=== PATIENT | female | born 1930 | race Two or more races ===

== ENCOUNTER 2016-11-10 16:28 | Emergency (ER) | payer MEDICARE, MEDICAID ==
[~2016-11-10] VITALS: Ht 154.9 cm; Wt 65.8 kg
[~2016-11-10 16:28] MED LIST: NITROFURANTOIN100 M2 ORAL; NKM; TRAMADOL HCL50 MG ORAL; UNOBMED
[2016-11-10] MEDS ORDERED: Bacitracin Oint UD TOPIC ONE (17:30)
[2016-11-10] MEDS ORDERED: Acetaminophen 500mg (ES) tab ORAL ONE (18:00)
[2016-11-10 18:01] LABS: APPEARANCE,URINE CLEAR; KETONES,URINE NEGATIVE (NEGATIVE); LEUKOCYTE ESTERASE ,URINE NEGATIVE (NEGATIVE); NITRITE,URINE NEGATIVE (NEGATIVE); PH,URINE 5 (4.5-8.0); PROTEIN,URINE 1+ (NEGATIVE); UROBILINOGEN,URINE 1 MG/DL (0.0-1.0)
[2016-11-10 18:07] LABS: BASOPHILS % (AUTO) 1.6 % (0.0-2.0); EOSINOPHILS % (AUTO) 3.4 % (0.0-3.0); LYMPHOCYTES % (AUTO) 16.2 % (20.0-45.0); MEAN CORPUSCULAR HGB CONC 32.7 G/DL (32.0-36.0); MEAN CORPUSCULAR VOLUME 98 FL (80-99); MEAN PLATELET VOLUME 9.4 FL (6.5-10.1); MONOCYTES % (AUTO) 5.9 % (1.0-10.0); NEUTROPHILS % (AUTO) 72.9 % (45.0-75.0); PLATELET COUNT 151 K/UL (150-450); RED CELL DISTRIBUTION WIDTH 12.4 % (11.6-14.8); WHITE BLOOD COUNT 7.4 K/UL (4.8-10.8)
[2016-11-10 18:18] LABS: TROPONIN I < 0.30 ng/mL (<=0.30)
[2016-11-10 18:20] LABS: BACTERIA,URINE FEW /HPF; RBC,URINE 0-2 /HPF (0 - 2); SQUAMOUS EPITHELIAL CELL,UR MODERATE /LPF (NONE/OCC); WBC,URINE 0-2 /HPF (0 - 2)
[2016-11-10 18:21] LABS: ALANINE AMINOTRANSFERASE 12 U/L (3-33); ALBUMIN/GLOBULIN RATIO 1.5 (1.0-2.7); ANION GAP 17 (5-15); ASPARTATE AMINO TRANSFERASE 24 U/L (5-40); CALCIUM 9.1 mg/dL (8.6-10.2); CARBON DIOXIDE 23 mEQ/L (20-30); CHLORIDE 96 mEQ/L (98-107); CREATININE 0.7 mg/dL (0.5-0.9); HEMOLYSIS 11; POTASSIUM 4.1 mEQ/L (3.4-4.9); SODIUM 136 mEQ/L (135-145); TOTAL PROTEIN 7.5 g/dL (6.6-8.7)
--- NOTE | 2016-11-10 19:40 | Emergency Room Report ---
History of Present Illness General Chief Complaint: Generalized Weakness Source: Patient Present Illness HPI 85-year-old female presents to emergency Department complaining of pain in the lower back in addition to left elbow pain and 2 days. Patient states she mechanical trip and fall on the sidewalk and has had pain since. Patient denies hitting her head, patient denies loss of consciousness. Patient denies taking blood thinning medications. Patient states that her primary care provider suggest that she be evaluated at the emergency department. Denies numbness tingling or loss of sensation or gross motor movements of the extremities, incontinence of bowel or bladder. Denies CP, Palpitations, LOC, AMS , dizziness, Changes in Vision, Sensation, paresthesias, or a sudden severe headache. 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 Past Medical History: see triage record Past Surgical History: none Pertinent Family History: none Now: No Immunizations: UTD Reviewed Nursing Documentation: PMH: Agreed, PSxH: Agreed Nursing Documentation-PMH Past Medical History: No Stated History Review of Systems All Other Systems: negative except mentioned in HPI Physical Exam Vital Signs Date Time Temp Pulse Resp B/P Pulse Ox O2 Delivery O2 Flow Rate FiO2 11/10/16 16:34 97.9 96 15 151/81 98 Room Air Sp02 EP Interpretation: reviewed, normal General Appearance: no apparent distress, alert, GCS 15, non-toxic Head: normocephalic, atraumatic Eyes: bilateral eye PERRL, bilateral eye normal inspection ENT: hearing grossly normal, normal pharynx, no angioedema, normal voice Neck: full range of motion, no meningismus, no bony tend, supple/symm/no masses Respiratory: chest non-tender, lungs clear, normal breath sounds, speaking full sentences Cardiovascular #1: regular rate, rhythm, no edema, normal capillary refill Cardiovascular #2: 2+ radial (R), 2+ radial (L) Gastrointestinal: normal bowel sounds, non tender, soft, no guarding, no rebound Rectal: deferred Musculoskeletal: back normal, gait/station normal, normal range of motion - FROM with pain, tender - Lumbar midline and paraspinal TTP, no bruising or obvious deformity noted. Left elbow bruises, and swelling noted. Neurologic: alert, oriented x3, responsive, motor strength/tone normal, sensory intact, cerebellar normal, normal gait, speech normal Psychiatric: judgement/insight normal, memory normal, mood/affect normal Skin: no rash, warm/dry, well hydrated, other - moderate bruise to the left elbow, there is swelling to the forearm , abrasions - abrasion to the lateral left ankle Lymphatic: no adenopathy Medical Decision Making PA Attestation Dr. Jasmine is my supervising Physician whom patient management has been discussed with. Diagnostic Impression: Primary Impression: Abrasion Additional Impressions: Elbow contusion Qualified Codes: S50.02XA - Contusion of left elbow, initial encounter Back pain Qualified Codes: M54.5 - Low back pain Fall Qualified Codes: W19.XXXA - Unspecified fall, initial encounter Elbow fracture, left Qualified Codes: S42.402A - Unspecified fracture of lower end of left humerus , initial encounter for closed fracture ER Course 85-year-old female presents to emergency Department complaining of pain in the lower back in addition to left elbow pain and 2 days. Patient states she mechanical trip and fall on the sidewalk and has had pain since. Patient denies hitting her head, patient denies loss of consciousness. Patient denies taking blood thinning medications. Patient states that her primary care provider suggest that she be evaluated at the emergency department. Ddx considered but are not limited to Fracture, dislocation, contusion, Sprain/ Strain/Spasm, Epidural abscess, Neoplastic mets. Vital signs: are WNL, pt. is afebrile H&PE are most consistent with Elbow contusion, right ankle abrasion, and [facility] will r/o fx with imaging. 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 Jasmine. - X-ray Left Elbow - evidence of posterior fat pad suggesting Fx- per Preliminary read in the ED by Dr. Jasmine. -CT L-Spine no Contrast: no evidence of fractures per preliminary radiology report. ED INTERVENTIONS: - Tylenol PO -Bacitracin is applied to the right ankle abrasion. - Long arm Posterior Splint applied to the left arm by histologist technologist. Pt. remains neurovascularly intact. -- Left arm Sling applied by histologist technologist. Pt. remains neurovascularly intact. DISCHARGE: At this time pt. is stable for d/c to home. Will provide printed patient care instructions, and any necessary prescriptions. Care plan and follow up instructions have been discussed with the patient prior to discharge. Labs Test 11/10/16 17:45 White Blood Count 7.4 K/UL (4.8-10.8) Red Blood Count 3.70 M/UL (4.20-5.40) Hemoglobin 11.8 G/DL (12.0-16.0) Hematocrit 36.2 % (37.0-47.0) Mean Corpuscular Volume 98 FL (80-99) Mean Corpuscular Hemoglobin 32.0 PG (27.0-31.0) Mean Corpuscular Hemoglobin Concent 32.7 G/DL (32.0-36.0) Red Cell Distribution Width 12.4 % (11.6-14.8) Platelet Count 151 K/UL (150-450) Mean Platelet Volume 9.4 FL (6.5-10.1) Neutrophils (%) (Auto) 72.9 % (45.0-75.0) Lymphocytes (%) (Auto) 16.2 % (20.0-45.0) Monocytes (%) (Auto) 5.9 % (1.0-10.0) Eosinophils (%) (Auto) 3.4 % (0.0-3.0) Basophils (%) (Auto) 1.6 % (0.0-2.0) Urine Color Yellow Urine Appearance Clear Urine pH 5 (4.5-8.0) Urine Specific [place] 1.015 (1.005-1.035) Urine Protein 1+ (NEGATIVE) Urine Glucose (UA) Negative (NEGATIVE) Urine Ketones Negative (NEGATIVE) Urine Occult Blood 4+ (NEGATIVE) Urine Nitrite Negative (NEGATIVE) Urine Bilirubin Negative (NEGATIVE) Urine Urobilinogen 1 MG/DL (0.0-1.0) Urine Leukocyte Esterase Negative (NEGATIVE) Urine RBC 0-2 /HPF (0 - 2) Urine WBC 0-2 /HPF (0 - 2) Urine Squamous Epithelial Cells Moderate /LPF (NONE/OCC) Urine Bacteria Few /HPF (NONE) Sodium Level 136 mEQ/L (135-145) Potassium Level 4.1 mEQ/L (3.4-4.9) Chloride Level 96 mEQ/L (98-107) Carbon Dioxide Level 23 mEQ/L (20-30) Anion Gap 17 (5-15) Blood Urea Nitrogen 19 mg/dL (7-23) Creatinine 0.7 mg/dL (0.5-0.9) Estimat Glomerular Filtration Rate mL/min (>60) Glucose Level 99 mg/dL (74-106) Lactic Acid Level 0.80 mmol/L (0.66-2.22) Calcium Level 9.1 mg/dL (8.6-10.2) Total Bilirubin 0.6 mg/dL (0.0-1.2) Aspartate Amino Transf (AST/SGOT) 24 U/L (5-40) Alanine Aminotransferase (ALT/SGPT) 12 U/L (3-33) Alkaline Phosphatase 71 U/L (35-104) Total Creatine Kinase 168 U/L (26-140) Creatine Kinase MB 3.0 ng/mL (< 3.8) Creatine Kinase MB Relative Index 1.7 Troponin I < 0.30 ng/mL (<=0.30) Total Protein 7.5 g/dL (6.6-8.7) Albumin 4.5 g/dL (3.5-5.2) Globulin 3.0 g/dL Albumin/Globulin Ratio 1.5 (1.0-2.7) EKG Diagnostic Results EP Interpretation: interpreted by Dr. 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 Jasmine Last Vital Signs Date Time Temp Pulse Resp B/P Pulse Ox O2 Delivery O2 Flow Rate FiO2 11/10/16 16:34 97.9 96 15 151/81 98 Room Air Disposition: HOME, SELF-CARE Condition: Stable Scripts Acetaminophen* (TYLENOL EXTRA STRENGTH*) 500 Mg Tablet 500 MG ORAL Q6H, #30 TAB 0 Refills Prov: Yamile Rivas 11/10/16 Referrals: NOT CHOSEN IPA/MD,REFERRING (PCP) Patient Instructions: Contusion, [id number], Elbow Fracture, Simple Additional Instructions: Take medications as directed. Follow up with PCP in 3-5 days Return sooner to ED if new symptoms occur, or current symptoms become worse. - Please note that this Emergency Department Report was dictated using [employer] sign language interpreter technology software, occasionally this can lead to erroneous entry secondary to interpretation by the dictation equipment. Yamile Rivas Nov 10, 2016 19:40
[2016-11-10] MEDS ORDERED: TYLENOL EXTRA500 MG ORAL (20:28)
[2016-11-10 20:37] VITALS: BP_SYST 145; BP_SYST 151; BP_DIAS 68; BP_DIAS 81
--- NOTE | 2016-11-11 10:07 | Diagnostic Imaging Report ---
Indications: Left elbow pain Technique: Views left elbow. Findings: Comparison: None No fracture, dislocation, joint space widening or effusion, lytic destruction, periosteal reaction , surrounding soft tissue swelling/foreign body/gas, or other acute changes are identified. IMPRESSION: No evidence of acute abnormalities.
--- NOTE | 2016-11-13 08:42 | Diagnostic Imaging Report ---
Indications: Fall, injury, low back pain Technique: Continuous helical CT imaging of the lumbar spine was performed with automatic exposure control on a Siemens sensation [address] scanner. Axial, coronal, and sagittal images were reconstructed at 3 mm slice thicknesses. CTDI volume(s): 11 mGy Total DLP: 352 mGy-cm Findings: Comparison: None Vertebral and intact. No fracture, facet subluxation or dislocation, lytic destruction, surrounding soft tissue swelling/mass, or other acute change identified. Small osteophytes margins of multiple disc spaces without narrowing. Lower lumbar facet joints mildly hypertrophied. Scattered arterial mural calcifications. Vascular patency indeterminate. Circumscribed low and high attenuation foci in bilateral renal cortices not further characterizable. Diffuse interstitial markings both lung bases. Enlargement of heart suggested. IMPRESSION: No evidence of acute lumbar injury Mild degenerative spondylosis Arteriosclerosis bilateral renal cortical masses probably but not definitely cysts. High attenuation foci likely proteinaceous. Neoplasm not excludable. Ultrasound correlation recommended. Pulmonary bibasal interstitial disease, nonspecific Suggestion of cardiomegaly This correlates with Dr. Almanzar's preliminary report.
--- NOTE | 2016-11-14 00:12 | Cardiology Report ---
APPROVED REPORT EKG Measurement Heart [id number] Sinus rhythm with premature atrial complexes with aberrant conduction Right bundle branch block Borderline ECG
== END 2016-11-10 20:38 | disposition home or self-care (01) ==
LOC: EMR 17:35
DX: S90.512A Abrasion, left ankle, initial encounter (principal); S90.511A Abrasion, right ankle, initial encounter; S50.02XA Contusion of left elbow, initial encounter; S42.402A Unspecified fracture of lower end of left humerus, initial encounter for closed fracture; W01.0XXA Fall on same level from slipping, tripping and stumbling without subsequent striking against object, initial encounter; Y93.9 Activity, unspecified; Y92.480 Sidewalk as the place of occurrence of the external cause; Y99.9 Unspecified external cause status; R53.1 Weakness; M54.5 Low back pain
CPT/HCPCS: 29105; 36415; 72131; 80053; 81003; 82550; 82553; 83605; 84484; 85025; 93005; 99283

== ENCOUNTER 2016-11-27 16:34 | Emergency (ER) | payer MEDICARE, MEDICAID ==
[~2016-11-27] VITALS: Ht 154.9 cm; Wt 56.7 kg
[~2016-11-27 16:34] MED LIST changes: +TYLENOL EXTRA500 MG ORAL
[2016-11-27 17:00] VITALS: BP 155/85
[2016-11-27 18:02] LABS: APPEARANCE,URINE CLEAR; KETONES,URINE NEGATIVE (NEGATIVE); LEUKOCYTE ESTERASE ,URINE NEGATIVE (NEGATIVE); NITRITE,URINE NEGATIVE (NEGATIVE); PH,URINE 6.5 (4.5-8.0); PROTEIN,URINE NEGATIVE (NEGATIVE); UROBILINOGEN,URINE NORMAL MG/DL (0.0-1.0)
[2016-11-27 18:05] LABS: ALANINE AMINOTRANSFERASE 12 U/L (3-33); ALBUMIN/GLOBULIN RATIO 1.2 (1.0-2.7); ANION GAP 14 (5-15); ASPARTATE AMINO TRANSFERASE 23 U/L (5-40); CALCIUM 9.2 mg/dL (8.6-10.2); CARBON DIOXIDE 25 mEQ/L (20-30); CHLORIDE 101 mEQ/L (98-107); CREATININE 0.9 mg/dL (0.5-0.9); HEMOLYSIS 7; LIPASE 24 U/L (< 60); POTASSIUM 4.5 mEQ/L (3.4-4.9); SODIUM 140 mEQ/L (135-145); TOTAL PROTEIN 7.5 g/dL (6.6-8.7); TROPONIN I < 0.30 ng/mL (<=0.30)
[2016-11-27 18:06] LABS: BASOPHILS % (AUTO) 2.1 % (0.0-2.0); EOSINOPHILS % (AUTO) 2.5 % (0.0-3.0); LYMPHOCYTES % (AUTO) 27.2 % (20.0-45.0); MEAN CORPUSCULAR HEMOGLOBIN 33.5 PG (27.0-31.0); MEAN CORPUSCULAR HGB CONC 34.2 G/DL (32.0-36.0); MEAN CORPUSCULAR VOLUME 98 FL (80-99); MEAN PLATELET VOLUME 7.9 FL (6.5-10.1); NEUTROPHILS % (AUTO) 62.2 % (45.0-75.0); PLATELET COUNT 229 K/UL (150-450); RED CELL DISTRIBUTION WIDTH 12.4 % (11.6-14.8)
[2016-11-27 18:11] LABS: BACTERIA,URINE FEW /HPF; SQUAMOUS EPITHELIAL CELL,UR FEW /LPF (NONE/OCC); WBC,URINE 0-2 /HPF (0 - 2)
[2016-11-27] MEDS ORDERED: COLACE100 MG ORAL (20:44)
[2016-11-27 21:00] VITALS: BP 167/75
--- NOTE | 2016-11-27 21:47 | Emergency Room Report ---
History of Present Illness General Chief Complaint: Abdominal Pain Source: Patient Present Illness HPI 86-year-old female presents ED complaining of abdominal pain x2 days. The pain as periumbilical, 6/10, constant, aching. Radiating to the back. Denies nausea or vomiting. Denies chest pain or shortness of breath. Notes no BM x3 days. No other aggravating or relieving factors. Denies any other associated symptom Allergies: Coded Allergies: No Known Allergies (Unverified , 01/22/14) Patient History Past Medical History: none Past Surgical History: none Pertinent Family History: none Social History: Denies: alcohol use, drug use, smoking Last Menstrual Period: na Now: No Immunizations: UTD Reviewed Nursing Documentation: PMH: Agreed, PSxH: Agreed Nursing Documentation-PMH Past Medical History: No History, Except For Review of Systems All Other Systems: negative except mentioned in HPI Physical Exam Vital Signs Date Time Temp Pulse Resp B/P Pulse Ox O2 Delivery O2 Flow Rate FiO2 11/27/16 16:51 97.9 70 18 162/82 99 Room Air Sp02 EP Interpretation: reviewed, normal General Appearance: no apparent distress, alert, GCS 15, non-toxic Head: normocephalic, atraumatic Eyes: bilateral eye PERRL, bilateral eye normal inspection ENT: hearing grossly normal, normal pharynx, no angioedema, normal voice Neck: full range of motion, supple/symm/no masses Respiratory: chest non-tender, lungs clear, normal breath sounds, speaking full sentences Cardiovascular #1: regular rate, rhythm, no edema Cardiovascular #2: 2+ carotid (R), 2+ carotid (L), 2+ radial (R), 2+ radial (L) , 2+ dorsalis pedis (R), 2+ dorsalis pedis (L) Gastrointestinal: normal bowel sounds, soft, non-distended, no guarding, no rebound, tenderness - periumbilical Rectal: deferred Genitourinary: normal inspection, no CVA tenderness Musculoskeletal: back normal, gait/station normal, normal range of motion, non- tender Neurologic: alert, oriented x3, responsive, motor strength/tone normal, sensory intact, speech normal Psychiatric: judgement/insight normal, memory normal, mood/affect normal, no suicidal/homicidal ideation Reflexes: 3+ bicep (R), 3+ bicep (L), 3+ tricep (R), 3+ tricep (L), 3+ knee (R) , 3+ knee (L) Skin: normal color, no rash, warm/dry, well hydrated Lymphatic: no adenopathy Medical Decision Making Diagnostic Impression: Primary Impression: Constipation Qualified Codes: K59.00 - Constipation, unspecified ER Course Hospital Course 86-year-old F presents to ED with abdominal pain Differential diagnosis includes-appendicitis, cholecystitis, small bowel obstruction, gastritis, Clinical course Patient placed on stretcher. After initial history and physical I ordered labs , IV fluids, CT Labs - no leukocytosis, electrolytes ok, LFTs normal, UA unremarkable CT - copious stool noted, no bowel obstruction. diverticulosis. no diverticulitis I feel this is a highly complex case requiring extensive working including EKG/ Rhythm strip, Xray/CT/US, Blood/urine lab work, repeat exams while in ED, and administration of strong opiates/narcotics for pain control, admission to hospital or close patient follow up. Diagnosis - constipation Stable and discharged to home with Rx Colace. instructed on high-fiber diet. Followup with PMD. Return to ED if symptoms recur or worsen Labs Test 11/27/16 17:38 11/27/16 17:40 White Blood Count 6.0 K/UL (4.8-10.8) Red Blood Count 3.60 M/UL (4.20-5.40) Hemoglobin 12.0 G/DL (12.0-16.0) Hematocrit 35.2 % (37.0-47.0) Mean Corpuscular Volume 98 FL (80-99) Mean Corpuscular Hemoglobin 33.5 PG (27.0-31.0) Mean Corpuscular Hemoglobin Concent 34.2 G/DL (32.0-36.0) Red Cell Distribution Width 12.4 % (11.6-14.8) Platelet Count 229 K/UL (150-450) Mean Platelet Volume 7.9 FL (6.5-10.1) Neutrophils (%) (Auto) 62.2 % (45.0-75.0) Lymphocytes (%) (Auto) 27.2 % (20.0-45.0) Monocytes (%) (Auto) 6.0 % (1.0-10.0) Eosinophils (%) (Auto) 2.5 % (0.0-3.0) Basophils (%) (Auto) 2.1 % (0.0-2.0) Sodium Level 140 mEQ/L (135-145) Potassium Level 4.5 mEQ/L (3.4-4.9) Chloride Level 101 mEQ/L (98-107) Carbon Dioxide Level 25 mEQ/L (20-30) Anion Gap 14 (5-15) Blood Urea Nitrogen 22 mg/dL (7-23) Creatinine 0.9 mg/dL (0.5-0.9) Estimat Glomerular Filtration Rate mL/min (>60) Glucose Level 105 mg/dL (74-106) Calcium Level 9.2 mg/dL (8.6-10.2) Total Bilirubin < 0.2 mg/dL (0.0-1.2) Aspartate Amino Transf (AST/SGOT) 23 U/L (5-40) Alanine Aminotransferase (ALT/SGPT) 12 U/L (3-33) Alkaline Phosphatase 116 U/L (35-104) Troponin I < 0.30 ng/mL (<=0.30) Total Protein 7.5 g/dL (6.6-8.7) Albumin 4.2 g/dL (3.5-5.2) Globulin 3.3 g/dL Albumin/Globulin Ratio 1.2 (1.0-2.7) Lipase 24 U/L (< 60) Urine Color Pale yellow Urine Appearance Clear Urine pH 6.5 (4.5-8.0) Urine Specific [place] 1.010 (1.005-1.035) Urine Protein Negative (NEGATIVE) Urine Glucose (UA) Negative (NEGATIVE) Urine Ketones Negative (NEGATIVE) Urine Occult Blood 2+ (NEGATIVE) Urine Nitrite Negative (NEGATIVE) Urine Bilirubin Negative (NEGATIVE) Urine Urobilinogen Normal MG/DL (0.0-1.0) Urine Leukocyte Esterase Negative (NEGATIVE) Urine RBC 2-4 /HPF (0 - 2) Urine WBC 0-2 /HPF (0 - 2) Urine Squamous Epithelial Cells Few /LPF (NONE/OCC) Urine Bacteria Few /HPF (NONE) CT/MRI/US Diagnostic Results CT/MRI/US Diagnostic Results : Imaging Test Ordered: CT A/P Impression impacted stool in colon. diverticulosis. no diverticulitis. Last Vital Signs Date Time Temp Pulse Resp B/P Pulse Ox O2 Delivery O2 Flow Rate FiO2 11/27/16 17:00 98.0 69 23 155/85 98 Room Air Status: improved Disposition: HOME, SELF-CARE Condition: Stable Scripts Docusate Sodium* (COLACE*) 100 Mg Capsule 100 MG ORAL THREE TIMES A DAY, #30 CAP Prov: JIGNESH MAYO M.D. 11/27/16 Patient Instructions: Constipation, Adult, [id number] JIGNESH MAYO M.D. Nov 27, 2016 21:47
--- NOTE | 2016-11-27 21:48 | Emergency Room Report ---
Physical Exam Vital Signs Date Time Temp Pulse Resp B/P Pulse Ox O2 Delivery O2 Flow Rate FiO2 11/27/16 16:51 97.9 70 18 162/82 99 Room Air Medical Decision Making Diagnostic Impression: Primary Impression: Constipation Qualified Codes: K59.00 - Constipation, unspecified EKG Diagnostic Results Rate: normal Rhythm: NSR ST Segments: other - RBBB ASA given to the pt in ED: No Rhythm Strip Diag. Results EP Interpretation: yes Rhythm: NSR, no ectopy, other - PVCs Last Vital Signs Date Time Temp Pulse Resp B/P Pulse Ox O2 Delivery O2 Flow Rate FiO2 11/27/16 17:00 98.0 69 23 155/85 98 Room Air Status: improved Disposition: HOME, SELF-CARE Condition: Stable Scripts Docusate Sodium* (COLACE*) 100 Mg Capsule 100 MG ORAL THREE TIMES A DAY, #30 CAP Prov: JIGNESH MAYO M.D. 11/27/16 Patient Instructions: Constipation, Adult, [id number] JIGNESH MAYO M.D. Nov 27, 2016 21:48
--- NOTE | 2016-11-28 10:25 | Diagnostic Imaging Report ---
Clinical Indication: Abdominal pain, constipation Technique: Patient given oral contrast. IV administration nonionic contrast. Venous phase spiral acquisition obtained through the abdomen and pelvis. Multiplanar reconstructions were generated. Total dose length product 1132 mGycm. CTDIvol(s) 16 and 19 mGy. Dose reduction achieved using automated exposure control Comparison: 09/21/2015 Findings: There is fairly extensive colonic diverticulosis. No evidence of diverticulitis. Normal appendix. No small bowel distention or small bowel wall thickening. No free or loculated intraperitoneal air or fluid. The distal esophagus, stomach, duodenum are unremarkable. The liver demonstrates numerous calcifications, consistent with old granulomatous disease. The gallbladder, bile ducts, pancreas, spleen, adrenals are unremarkable. The right kidney demonstrates multiple cysts, as well as bilateral subcentimeter low-attenuation lesions which are too small to characterize. There is also a subcentimeter exophytic hyperdense lesion coming off the interpolar region of the left kidney. No pelvic mass or adenopathy. Uterus is not demonstrated, presumed surgically absent. Is very mild protrusion of the perineal structures below the skin, mild vaginal prolapse not completely excludable, but no evidence of cystocele. The lung bases demonstrate nonspecific reticular and groundglass opacities similar to previously. The heart is borderline enlarged. The bones demonstrate degenerative spondylosis changes. Impression: No definite acute abnormality Extensive colonic diverticulosis, also previously described. No evidence of diverticulitis. Evidence of old granulomatous disease within the liver. Bilateral renal cysts. Bilateral subcentimeter low-attenuation renal since, too small to characterize most likely benign simple cysts. Subcentimeter hyperdense left renal lesion likely but not definitively a proteinaceous cyst Bilateral basilar reticular and groundglass pulmonary parenchymal opacities. 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 Mild vaginal prolapse not completely excludable This agrees with the preliminary interpretation provided overnight by Dr. Adams The CT scanner at [facility] is accredited by the [employer] and the scans are performed using protocols designed to limit radiation exposure to as low as reasonably achievable to attain images of sufficient resolution adequate for diagnostic evaluation.
== END 2016-11-27 21:05 | disposition home or self-care (01) ==
LOC: EMR 17:15
DX: K59.00 Constipation, unspecified (principal)
CPT/HCPCS: 36415; 74177; 80053; 81003; 83690; 84484; 85025; 93005; 96360; 99284; Q9967